=== PATIENT | male | born 1960 | race Caucasian/White ===

== ENCOUNTER 2017-02-19 16:46 | Emergency (ER) | payer MEDICARE, OTHER ==
[~2017-02-19] VITALS: Ht 154.9 cm; Wt 60.9 kg
[2017-02-19] MEDS ORDERED: HYDR25TA84 PO (17:30)
[2017-02-19] MEDS ORDERED: LOVA20 PO (17:30)
[2017-02-19] MEDS ORDERED: DOXA2TAB PO (17:30)
[2017-02-19] MEDS ORDERED: PANT40TA25 PO (17:30)
[2017-02-19] MEDS ORDERED: NIFE60TA71 PO (17:30)
[2017-02-19] MEDS ORDERED: DEXAMETHASONE 4 MG TABLET PO ONE (17:45)
[2017-02-19] MEDS: DiphenhydrAMINE HCL 50 MG/ML VIAL IVP ONE ×2 (17:54→19:07)
[2017-02-19 18:17] LABS: GLUCOSE,POINT OF CARE 144 MG/DL (70-110)
[2017-02-19 18:34] LABS: BASOPHILS % (AUTO) 0.7 % (0.0-2.0); EOSINOPHILS % (AUTO) 2.9 % (1.0-6.0); HEMOGLOBIN 8.1 g/dL (13.5-17.5); LYMPHOCYTES # (AUTO) 1.1 K/uL (1.0-4.8); LYMPHOCYTES % (AUTO) 17.4 % (22.0-44.0); MEAN CORPUSCULAR HEMOGLOBIN 28.3 pg (26.0-34.0); MEAN CORPUSCULAR HGB CONC 33.7 G/dL (31.0-37.0); MEAN CORPUSCULAR VOLUME 84 fL (80-100); MONOCYTES # (AUTO) 0.4 K/uL (0.1-1.0); MONOCYTES % (AUTO) 6.6 % (2.0-9.0); NEUTROPHILS # (AUTO) 4.4 K/uL (1.8-7.7); NEUTROPHILS % (AUTO) 72.4 % (40.0-70.0); PLATELET COUNT (AUTO) 190 K/uL (150-450); RED BLOOD CELL COUNT(AUTO) 2.86 MIL/uL (4.50-5.90); RED CELL DISTRIBUTION WIDTH 16.2 % (11.5-14.5); WHITE BLOOD COUNT (AUTO) 6.1 K/uL (4.5-11.0)
[2017-02-19 18:41] LABS: CALCIUM, TOTAL 8.2 mg/dL (8.8-10.5); CREATININE 3.47 mg/dL (0.60-1.30); POTASSIUM 5.2 mmol/L (3.5-5.1)
[2017-02-19 18:42] LABS: ALBUMIN 2.1 g/dL (3.4-5.0); BILIRUBIN,TOTAL 0.2 mg/dL (0.1-1.0); TOTAL PROTEIN, SERUM 5.3 g/dL (6.4-8.2)
[2017-02-19 20:04] VITALS: BP 119/79
[2017-02-19] MEDS ORDERED: ACETAMINOPHEN 325 MG TABLET PO ONE (20:15)
[2017-02-19] MEDS ORDERED: BACITRACIN 0.9 GM PACKET OINTMENT TP ONE (20:16)
== END 2017-02-19 20:32 | disposition home or self-care (01) ==
LOC: EMS 16:49
DX: I12.9 Hypertensive chronic kidney disease with stage 1 through stage 4 chronic kidney disease, or unspecified chronic kidney disease (principal); E11.22 Type 2 diabetes mellitus with diabetic chronic kidney disease; N18.9 Chronic kidney disease, unspecified; M54.5 Low back pain; M54.2 Cervicalgia; M79.671 Pain in right foot; E78.00 Pure hypercholesterolemia, unspecified; K21.9 Gastro-esophageal reflux disease without esophagitis
CPT/HCPCS: 72100; 82948; 82962; 99285

== ENCOUNTER 2022-02-03 16:19 | Emergency (ER) | payer MEDICARE, OTHER ==
[~2022-02-03] VITALS: Ht 165.1 cm; Wt 67.0 kg
[~2022-02-03 16:19] MED LIST: DOXA2TAB86 PO; HYDR25TA84 PO; LOVA20TA73 PO; NIFE60TA84 PO; PANT-31 PO
[2022-02-03] MEDS ORDERED: IBUPROFEN 600 MG TABLET PO ONE (17:45)
[2022-02-03] MEDS ORDERED: ACETAMINOPHEN 500 MG TABLET PO ONE (17:45)
[2022-02-03 17:48] LABS: BASOPHILS % (AUTO) 0.9 % (0.0-2.0); EOSINOPHILS % (AUTO) 2.3 % (1.0-6.0); HEMATOCRIT 32.4 % (41-53); HEMOGLOBIN 11.2 g/dL (13.5-17.5); LYMPHOCYTES # (AUTO) 1.1 K/uL (1.0-4.8); LYMPHOCYTES % (AUTO) 30.8 % (22.0-44.0); MEAN CORPUSCULAR HEMOGLOBIN 30.7 pg (26.0-34.0); MEAN CORPUSCULAR HGB CONC 34.6 G/dL (31.0-37.0); MEAN CORPUSCULAR VOLUME 89 fL (80-100); MONOCYTES # (AUTO) 0.4 K/uL (0.1-1.0); MONOCYTES % (AUTO) 11.8 % (2.0-9.0); NEUTROPHILS # (AUTO) 1.9 K/uL (1.8-7.7); NEUTROPHILS % (AUTO) 54.2 % (40.0-70.0); PLATELET COUNT (AUTO) 127 K/uL (150-450); RED BLOOD CELL COUNT(AUTO) 3.66 MIL/uL (4.50-5.90); RED CELL DISTRIBUTION WIDTH 15.6 % (11.5-14.5)
[2022-02-03 17:55] LABS: ANION GAP 8 mmol/L (8-16); CALCIUM, TOTAL 9.1 mg/dL (8.8-10.5); CARBON DIOXIDE 32 mmol/L (22-29); CHLORIDE 97 mmol/L (98-107); CREATININE 3.06 mg/dL (0.60-1.30); GLUCOSE,RANDOM 222 mg/dL (70-110); POTASSIUM 4.2 mmol/L (3.5-5.1); SODIUM SERUM 137 mmol/L (136-145); UREA NITROGEN, BLOOD 16 mg/dL (7-18)
[2022-02-03 17:56] LABS: GLOMERULAR FILTR. RATE CALC 21 mL/min (>60)
[2022-02-03 18:01] LABS: ALANINE AMINOTRANSFERASE 13 U/L (12-78); ALBUMIN 3.3 g/dL (3.4-5.0); ALKALINE PHOSPHATASE 118 U/L (46-116); ASPARTATE AMINOTRANSFERASE < 5 U/L (15-37); BILIRUBIN,TOTAL 0.3 mg/dL (0.1-1.0); TOTAL PROTEIN, SERUM 6.7 g/dL (6.4-8.2)
[2022-02-03 18:31] VITALS: BP 141/81
== END 2022-02-03 18:54 | disposition home or self-care (01) ==
LOC: EMS 16:20
DX: R42 Dizziness and giddiness (principal); E11.22 Type 2 diabetes mellitus with diabetic chronic kidney disease; I12.0 Hypertensive chronic kidney disease with stage 5 chronic kidney disease or end stage renal disease; N18.6 End stage renal disease; E11.65 Type 2 diabetes mellitus with hyperglycemia; M60.9 Myositis, unspecified; E78.00 Pure hypercholesterolemia, unspecified; K21.9 Gastro-esophageal reflux disease without esophagitis; Z79.899 Other long term (current) drug therapy; Z99.2 Dependence on renal dialysis
CPT/HCPCS: 80053; 84484; 85025; 93005; 99284